=== PATIENT | female | born 1980 ===

== ENCOUNTER 2020-10-23 10:43 | Emergency (ER) | payer SELFPAY ==
[~2020-10-23] VITALS: Ht 157.5 cm; Wt 100.0 kg
[2020-10-23 10:48] VITALS: BP 137/72
--- NOTE | 2020-10-23 11:03 | NUR ---
last took 1 ibuprofen last night
== END 2020-10-23 11:19 | disposition home or self-care (01) ==
LOC: ER 10:43
DX: G56.03 Carpal tunnel syndrome, bilateral upper limbs (principal); M25.532 Pain in left wrist; M25.531 Pain in right wrist; G89.29 Other chronic pain; Z88.5 Allergy status to narcotic agent; Z88.6 Allergy status to analgesic agent
CPT/HCPCS: 99281; 99282